=== PATIENT | female | born 2000 | race Caucasian/White ===

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

== ENCOUNTER 2021-11-11 18:29 | Emergency (ER) | payer OTHER, MEDICAID, SELFPAY ==
[2021-11-11 18:46] VITALS: BP 149/100; PULSE 91; RESP 18; TEMP 36.5; O2SAT 99
--- NOTE | 2021-11-11 19:03 | ED.FEMALEGU ---
HPI - Female Genitourinary General Chief complaint: Urogenital-Female Stated complaint: STD Exposed Time Seen by Provider: 11/11/21 19:03 Source: patient, RN notes reviewed and old records reviewed Mode of arrival: ambulatory Limitations: no limitations History of Present Illness HPI Narrative: 21-year-old female presents to the [facility] with complaints of burning with urination, vaginal discharge. Patient states someone she had slept with told her they were positive for unknown STD Denies any fevers. No nausea vomiting or diarrhea. Denies any abdominal pain or chest pain. Related Data Allergies Allergy/AdvReac Type Severity Reaction Status Date / Time No Known Allergies Allergy Unverified 09/03/18 13:36 Review of Systems Review of Systems: All systems reviewed & are unremarkable except as noted in HPI and below Constitutional: Constitutional: Reports no additional constitutional complaints, Denies chills and Denies fever(s) Eyes: Eyes: Reports no additional eye complaints ENT: Reports system reviewed and no additional complaints, except as documented Cardiovascular: Cardiovascular: Reports no additional cardiovascular complaints Respiratory: Respiratory: Reports no additional respiratory complaints Gastrointestinal: Gastrointestinal: Reports no additional gastrointestinal complaints Genitourinary: Genitourinary: Reports as per HPI Musculoskeletal: Musculoskeletal: Reports no additional musculoskeletal complaints Integumentary/Breasts: Skin/Breast: Reports system reviewed and no additional complaints, except as docu Neurologic: Reports system reviewed and no additional complaints, except as documented Psychiatric: Psychiatric: Reports no additional psychiatric complaints Allergic/Immunologic: Allergic/Immunologic: Reports no additional allergic/immunologic complaints PMFSH Social History Social History Smoking status: Never smoker Alcohol intake: never Substance use: never Gender identity (if verbalized by the patient): Female Spiritual care concerns: No Agree to blood products: Yes Comments At the time of my signature, I reviewed and agree with the nursing past medical, surgical, social, and family history. There is no relevant family history pertinent to the patient complaint. Exam Const: General: healthy appearing, no acute distress and alert Nutritional Appearance: well nourished Orientation/consciousness: patient oriented x3 Limitations: no limitations HENMT: Head: normal to inspection Ears: external ears normal Eyes: General: appearance normal, both eyes and all related structures Pupils: Equal, round and reactive pupils present Neck: Neck: normal visual inspection, no lymphadenopathy and no meningeal signs Chest: Chest palpation & inspection: normal inspection of the chest Resp: Effort & Inspection: normal respiratory effort and no use of accessory muscles Auscultation: clear to auscultation bilaterally, no crackles, no rales, no rhonchi and no wheezes Cardio: Rate: regular rate Rhythm: regular rhythm GI: GI Palp: Yes Soft to palpation and No Tenderness to palpation present (GI) : General: Yes no CVA tenderness External Female Exam: normal external appearance, normal appearance of the urethra, No erythema, No externally tender, No external swelling and No lesion Speculum Exam - Vagina: normal appearance of the vagina and other (Currently on menses) Speculum Exam - Cervix: normal appearance of the cervix Other: Chaperoned by PA student Licha Back/Spine/Pelvis: Back: no CVA tenderness Cervical Spine: normal cervical lordosis Thoracic/Lumbar Spine: thoracic and lumbar spine normal to inspection Skin: General skin exam: normal color Rashes: no rashes Wounds: no wounds Neuro: General: patient oriented x3, moves all extremities, no meningeal signs and no focal motor deficits Cranial nerves: Yes Equal, round and r
[2021-11-11] MEDS: cefTRIAXone 500 MG VIAL IM (19:42)
== END 2021-11-11 20:06 | disposition home or self-care (01) ==
PROVIDERS: Emergency Provider Nurse Practitioner
DX: Z20.2 Contact with and (suspected) exposure to infections with a predominantly sexual mode of transmission (principal)
CPT/HCPCS: 81003; 81025; 87070; 87491; 87591; 87661; 96372; 99214; G0463; J0696

== ENCOUNTER 2024-07-25 15:48 | Emergency (ER) | payer BC, SELFPAY ==
--- OUTSIDE RECORDS SUMMARY | 2024-07-25 15:50 | XMS_ITS | Clinical Summary ---
Author Organization [facility] Address [address] [place] [address] Care Team Providers Care Biology Research Assistant Name Role Phone Chato Ramos MD Primary Care Provider + [phone] Allergies No known active allergies Medications No known medications Social History Tobacco Use Types Packs/Day Years Used Date Smoking Tobacco: Never Assessed Personal Safety Answer Date Recorded Have you ever been in or are you currently in a harmful physical or emotional relationship or is someone making you feel afraid or unsafe? Denies 05/18/2023 Comments No Sex and Gender Information Value Date Recorded Sex Assigned at Not on file Legal Sex Female 11:52 PM EMERGENCY REGISTRAR Gender Identity Not on file Sexual Orientation Not on file Obstetrics History Last Filed Vital Signs Vital Sign Reading Time Taken Comments Blood Pressure 159/82 05/18/2023 10:08 PM EMERGENCY REGISTRAR Pulse 78 05/18/2023 10:08 PM EMERGENCY REGISTRAR Temperature 36.7 C (98.1 F) 05/18/2023 10:08 PM EMERGENCY REGISTRAR Respiratory Rate 16 05/18/2023 10:08 PM EMERGENCY REGISTRAR Oxygen Saturation 100% 05/18/2023 10:08 PM EMERGENCY REGISTRAR Inhaled Oxygen Concentration - - Weight 90.7 kg (200 lb) 05/18/2023 10:08 PM EMERGENCY REGISTRAR Height 170.2 cm (5' 7 ) 05/18/2023 10:08 PM EMERGENCY REGISTRAR Body Mass Index 31.32 05/18/2023 10:08 PM EMERGENCY REGISTRAR Plan of Treatment Health Maintenance Due Date Last Done Comments Cervical Cancer Screening 2000 Depression Screening 2000 Hepatitis C Screening 2000 Varicella Vaccines (2 of 2 - 2-dose childhood series) 2004 06/13/2001 HPV Vaccines (1 - 3-dose series) 2015 Regular Well Visit/Exam 18-64 2018 Influenza Vaccine (#1) 2023 DTaP/Tdap/Td Vaccine (6 - Td or Tdap) 04/12/2029 04/12/2019, 06/13/2001, 2000, Additional history exists Hepatitis B Screening Completed 2000 , 2000, 2000 Pneumococcal vaccine <65 Completed 06/27/2001, 03/21 Care Teams Biology Research Assistant Relationship Specialty Start Date End Date Chato Ramos MD [address] [place] [address] PCP - General 02/11/21
--- OUTSIDE RECORDS SUMMARY | 2024-07-25 15:50 | XMS_ITS | Referral Summary ---
Author Organization [facility] Address [address] [place] [address] Care Team Providers Care Comber Fixer Name Role Phone Chato Ramos MD Primary Care Provider + [phone] Allergies No known active allergies Medications No [...] on file Legal Sex Female 11:52 PM CRACKER OFF Gender Identity Not on file Sexual Orientation Not on file Last Filed Vital Signs Vital Sign Reading Time Taken Comments Blood Pressure 159/82 05/18/2023 10:08 PM CRACKER OFF Pulse 78 05/18/2023 10:08 PM CRACKER OFF Temperature 36.7 C (98.1 F) 05/18/2023 10:08 PM CRACKER OFF Respiratory Rate 16 05/18/2023 10:08 PM CRACKER OFF Oxygen Saturation 100% 05/18/2023 10:08 PM CRACKER OFF Inhaled Oxygen Concentration - - Weight 90.7 kg (200 lb) 05/18/2023 10:08 PM CRACKER OFF Height 170.2 cm (5' 7 ) 05/18/2023 10:08 PM CRACKER OFF Body Mass Index 31.32 05/18/2023 10:08 PM CRACKER OFF Plan of Treatment Not on file Care Teams Comber Fixer Relationship Specialty Start Date End Date Chato Ramos MD [address] [place] [address] PCP - General 02/11/21
[2024-07-25 15:55] VITALS: BP 153/78; PULSE 68; RESP 16; TEMP 37.1; O2SAT 100
--- NOTE | 2024-07-25 15:55 | ED_ITS ---
HPI - Female Genitourinary General Chief complaint: Urogenital-Female Stated complaint: urinary irritation Time Seen by Provider: 07/25/24 16:10 Source: patient and RN notes reviewed Mode of arrival: ambulatory Limitations: no limitations History of Present Illness HPI Narrative: [age] year old female presents concern for BV. Reports she has been having green colored discharge with a foul odor. Reports occasional vaginal itch. She denies any dysuria, frequency, urgency, abdominal pain, fever. Reports history of BV. She denies any concern for STDs MD elicited complaint: UTI Related Data Home Medications ?Medication ?Instructions ?Recorded ?Confirmed ?Last Taken ?Type No Home Medications 07/25/24 07/25/24 Unknown History Allergies Allergy/AdvReac Type Severity Reaction Status Date / Time No Known Allergies Allergy Verified 07/25/24 15:58 Review of Systems Review of Systems: CONSTITUTIONAL: Denies malaise, chills, sweats, or fever. CARDIOVASCULAR: Denies chest pain, palpitations, or edema. RESPIRATORY: Denies cough or dyspnea. GASTROINTESTINAL: Denies abdominal pain, nausea, vomiting, diarrhea GENITOURINARY: Denies dysuria, frequency, urgency, suprapubic pressure. Denies flank pain or hematuria. Reports foul-smelling vaginal discharge SKIN: Denies rash or itching. MUSCULOSKELETAL: Denies back pain or myalgia. All systems reviewed & are unremarkable except as noted in HPI and below PMFSH Social History Social History Smoking status: Never smoker Alcohol intake: never Substance use: never Living arrangements: with family Occupation/Education: unemployed Gender identity (if verbalized by the patient): Female Spiritual care concerns: No Agree to blood products: Yes Comments At time of signature, agree with nursing past medical, surgical, social and family history. There is no relevant family history pertinent to the presenting complaint Exam Narrative: GENERAL: Well-appearing, well-nourished, and in no acute distress. HEAD: Normocephalic. EYES: PERRLA, conjunctivae clear. NECK: Supple. No lymphadenopathy CHEST: Clear to auscultation. No respiratory distress. HEART: Regular rate and rhythm. ABDOMEN: Soft, nontender upon palpation, nondistended, normal active bowel sounds, no palpable or pulsatile masses, no guarding. No CVA tenderness SKIN: Warm, dry, no rash. NEURO: Alert and oriented x3. PSYCH: Normal mood and affect Course Course Emergency Course: Patient is aware of diagnosis, understands and agrees to treatment plan. Anticipatory guidance given. Patient agrees to follow-up as directed and is aware of reasons to seek care at the emergency department. Portions of this record may have been created with voice recognition software Level of Care: Express Care Visit Vital Signs Vital signs: Vital Signs Temperature 98.7 F 07/25/24 15:55 Pulse Rate 68 07/25/24 15:55 Respiratory Rate 16 07/25/24 15:55 Blood Pressure 153/78 H 07/25/24 15:55 Pulse Oximetry 100 07/25/24 15:55 Oxygen Delivery Room Air 07/25/24 15:55 Temperature 98.7 F 07/25/24 15:55 Pulse Rate 68 07/25/24 15:55 Respiratory Rate 16 07/25/24 15:55 Blood Pressure 153/78 H 07/25/24 15:55 Pulse Oximetry 100 07/25/24 15:55 Oxygen Delivery Room Air 07/25/24 15:55 Reviewed. MDM - Female Genitourinary MDM Narrative Medical decision making narrative: Exam findings and UA show no acute concerns or changes; patient is non-toxic appearing and is in no distress. Patient is appropriate for outpatient treatment and follow-up. Differential Diagnosis Differential diagnosis: Likely urinary tract infection and cystitis Lab Data Labs: Lab Results 07/25/24 Range/Units 16:02 POC Urine Color Yellow POC Urine Clarity Clear POC Urine pH 6.0 POC Ur Specif Stanley 1.030 POC Urine Protein Negative (Negative) POC Ur Glucose (UA) Negative (Negative) POC Urine Ketones Negative (Negative) POC Urine Blood Negative (Negative) POC Urine Nitrite Negative (Negative) POC Urine Bilirubin Negative (Negative) POC Urine Urobilinogen 0.2 POC U Leukocyte Esteras Trace (Negative) Critical Care Time Critical Care Time Critical Care Time: No Discharge Plan Discharge Clinical Impression: Bacterial vaginosis Patient Disposition: Home Condition: Stable Instructions: Antibiotic Form, Bacterial Vaginosis (ED) Additional Instructions: 1) Please follow-up with your primary care doctor as needed. 2) If you have any urgent concerns please go to the ER. 3) Please take medications as prescribed and continue taking your home medications as usual. 4) Please read and follow information included in discharge instructions. Patient Language: Hungarian Prescriptions: New metronidazole 500 mg tablet 500 mg PO BID 7 Days Qty: 14 0RF No Action No Home Medications Follow-up/Referrals: AIDA,Toña HUMPHREY [Primary Care Provider] - Time of Disposition: 16:17
[2024-07-25 16:08] LABS: EDUAAPPEAR Clear; EDUABILI Negative (Negative); EDUABLOOD Negative (Negative); EDUACOLOR1 Yellow; EDUAGLUCOSE Negative (Negative); EDUAKETONE Negative (Negative); EDUALEUKO Trace (Negative); EDUANITRATE Negative (Negative); EDUAPROTEIN Negative (Negative); EDUAUROBILI 0.2
== END 2024-07-25 16:21 | disposition home or self-care (01) ==
PROVIDERS: Emergency Provider Nurse Practitioner; PCP Family Medicine
DX: N76.0 Acute vaginitis (principal)
CPT/HCPCS: 81003; 99213; G0463